=== PATIENT | female | born 1990 | race Hispanic/Latino ===

== ENCOUNTER 2016-09-13 09:37 | Inpatient (IN) | payer OTHER ==
[2016-09-13] MEDS: LACTATED RINGERS 1,000 ML IV NR ×3 (10:27→19:31)
--- NOTE | 2016-09-13 10:38 | Anesthesia Consultation ---
Anesthesia Consult and Med Hx Date of service: 09/13/16 - Airway Anesthetic Teeth Evaluation: Good ROM Head & Neck: Adequate Mental/Hyoid Distance: Adequate Mallampati Class: Class II Intubation Access Assessment: Probably Good - Pre-Operative Health Status ASA Pre-Surgery Classification: ASA2 Proposed Anesthetic Plan: Epidural, Spinal - Pulmonary Hx Asthma: Yes (Childhood asthma) - Cardiovascular System Hx Hypertension: No - Central Nervous System Hx Seizures: No Hx Psychiatric Problems: Yes (Anxiety disorder) - Gastrointestinal Hx Gastroesophageal Reflux Disease: No (hyperemesis) - Endocrine Hx Renal Disease: No Hx Hypothyroidism: No Hx Hyperthyroidism: No - Hematic Hx Anemia: No Hx Sickle Cell Disease: No - Other Systems Hx Alcohol Use: No - Additional Comments Anesthesia Medical History Comments: repeat
--- NOTE | 2016-09-13 10:41 | Anesthesia Day of Surgery ---
Anesthesia Day of Surgery - Day of Surgery Patient Examined: Yes Patient H&P Reviewed: Yes Patient is NPO: Yes
[2016-09-13 10:52] LABS: Basophils % (Auto) 0.5 % (0.0-1.8); Hematocrit 35.2 % (30.3-42.9); Hemoglobin 11.6 gm/dl (10.1-14.3); Mean Corpuscular HGB Conc 33 % (30-34); Mean Corpuscular Hemoglobin 29 pg (28-32); Mean Corpuscular Volume 87 fl (79-97); Platelet Count 141 K/mm3 (140-440); Red Blood Count 4.05 M/mm3 (3.65-5.03); Red Cell Distribution Width 13.2 % (13.2-15.2); White Blood Count 13.6 K/mm3 (4.5-11.0)
[2016-09-13] MEDS ORDERED: BICITRA PO NR (11:00)
[2016-09-13] MEDS ORDERED: SODIUM CHLORIDE FLUSH SYRINGE 10 ML IV PRN (11:00)
[2016-09-13] MEDS ORDERED: ANCEF/STERILE WATER 2 GM/20 ML IV NR (11:00)
[2016-09-13] MEDS ORDERED: REGLAN IV NR (11:00)
[2016-09-13] MEDS ORDERED: PEPCID IV NR (11:00)
[2016-09-13] MEDS ORDERED: PITOCin/NS 20 UNIT/1000ML DRIP 20 UNIT/1,000 ML BAG IV NR (11:00)
[2016-09-13] MEDS ORDERED: MORPHINE ONE (11:29)
[2016-09-13] MEDS ORDERED: DILAUDID IV PRN (11:30)
[2016-09-13] MEDS ORDERED: WATER FOR IRRIG STERILE IR ONE (11:45)
[2016-09-13] MEDS ORDERED: NACL 0.9% IR ONE (11:45)
[2016-09-13] MEDS ORDERED: PHENERGAN PR PRN ×2 (12:00→13:32)
[2016-09-13] MEDS ORDERED: ZOFRAN IV PRN ×2 (12:00→13:32)
[2016-09-13] MEDS ORDERED: NARCAN 0.4 MG/1 ML IV PRN ×2 (12:00→13:32)
[2016-09-13] MEDS ORDERED: NEO SYNEPHRINE/NS Syringe(OR USE) IV ONE (12:05)
[2016-09-13] MEDS ORDERED: ZOFRAN ONE (13:06)
[2016-09-13] MEDS ORDERED: NACL 0.9% 1000 ML 1,000 ML ONE (13:22)
[2016-09-13] MEDS ORDERED: TORADOL ONE (13:28)
--- NOTE | 2016-09-13 13:28 | History and Physical Report ---
History of Present Illness Date of examination: 09/13/16 Date of admission: 09/13/16 09:37 Chief complaint: Repeat c/sec History of present illness: 26 yo at 39+1 weeks here for desired repeat c/sec Past History Past Medical History: no pertinent history Past Surgical History: section Family/Genetic History: none Social history: no significant social history, . denies: smoking, alcohol abuse, prescription drug abuse, IV drug use - Obstetrical History Expected Date of Delivery: 09/19/16 Actual Gestation: 39 Week(s) 1 Day(s) : 2 Para: 1 Hx # Term Pregnancies: 1 Number of Pregnancies: 0 Spontaneous Abortions: 0 Induced : 0 Number of Living Children: 1 Medications and Allergies Allergies Allergy/AdvReac Type Severity Reaction Status Date / Time No Known Allergies Allergy Verified 09/13/16 09:43 Home Medications Medication Instructions Recorded Confirmed Last Taken Type Caplet 1 cap PO DAILY 07/12/16 09/13/16 1 Day Ago History Promethazine [Phenergan TAB] 1 tab PO PRN 09/13/16 1 Day Ago History Active Meds: Active Medications Cefazolin Sodium (Ancef/Sterile Water 2 Gm/20 Ml) 2 gm IV PREOP NR PRN Reason: Protocol Stop: 09/13/16 20:00 Citric Acid/Sodium Citrate (Bicitra) 30 ml PO ONCE NR Stop: 09/13/16 20:00 Last Admin: 09/13/16 10:36 Dose: 30 ml Diphenhydramine HCl (Benadryl) 12.5 mg IV Q2H PRN PRN Reason: Itching Famotidine (Pepcid) 20 mg IV ONCE NR Stop: 09/13/16 20:00 Last Admin: 09/13/16 10:36 Dose: 20 mg Hydromorphone HCl (Dilaudid) 0.5 mg IV Q4H PRN PRN Reason: breakthrough pain > 7/10 Lactated Ringer's (Lactated Ringers) 1,000 mls @ 2,250 mls/hr IV PREOP NR Stop: 09/13/16 21:00 Last Admin: 09/13/16 11:08 Dose: 2,250 mls/hr Oxytocin/Sodium Chloride (Pitocin/Ns 20 Unit/1000ml Drip) 20 unit in 1,000 mls @ 0 mls/hr IV TITR NR PRN Reason: Wide Open Stop: 09/13/16 20:00 Metoclopramide HCl (Reglan) 10 mg IV ONCE NR Stop: 09/13/16 20:00 Last Admin: 09/13/16 10:36 Dose: 10 mg Naloxone HCl (Narcan 0.4 Mg/1 Ml) 0.2 mg IV Q2MIN PRN PRN Reason: Res Rate </= 8 or 02 SAT < 92% Stop: 09/15/16 12:01 Ondansetron HCl (Zofran) 4 mg IV Q8H PRN PRN Reason: Nausea And Vomiting Promethazine HCl (Phenergan) 25 mg PO Q6H PRN PRN Reason: Nausea And Vomiting Promethazine HCl (Phenergan) 25 mg NE Q6H PRN PRN Reason: Nausea And Vomiting Sodium Chloride (Sodium Chloride Flush Syringe 10 Ml) 10 ml IV PRN PRN PRN Reason: flush Review of Systems Constitutional: weight gain Eyes: deferred Ears, nose, mouth and throat: deferred Cardiovascular: no chest pain, no edema Breasts: normal Gastrointestinal: no nausea, no vomiting Genitourinary: deferred Rectal Exam: deferred Integumentary: deferred - Vital Signs Vital signs: Vital Signs Temp Pulse Resp BP Pulse Ox 98.1 F 93 H 18 124/66 98 09/13/16 10:07 09/13/16 10:07 09/13/16 10:07 09/13/16 10:07 09/13/16 10:07 Temp Pulse Resp BP Pulse Ox 98.1 F 72 18 124/66 82 L 09/13/16 10:07 09/13/16 10:10 09/13/16 10:07 09/13/16 10:07 09/13/16 10:10 - Physical Exam Breasts: Positive: normal Cardiovascular: Regular rate, Normal S1, Normal S2 Lungs: Positive: Clear to auscultation, Normal air movement Abdomen: Positive: normal appearance, soft, normal bowel sounds Genitourinary (Female): Positive: normal external genitalia, normal perenium Vulva: both: normal Vagina: Positive: normal moisture Uterus: Positive: normal size, normal contour Adnexa: both: normal Anus/Rectum: Positive: normal perianal skin, heme negative Deep Tendon Reflex Grade: Normal +2 - Obstetrical FHR: auscultation normal, category 1 Uterine Contraction Monitor Mode: External (deferred) Uterine Tone Measurement Phase: Resting Results Result Diagrams: 09/13/16 10:30 Abnormal lab results 09/13/16 Range/Units 10:30 WBC 13.6 H (4.5-11.0) K/mm3 Seg Neutrophils % 76.4 H (40.0-70.0) % Seg Neutrophils # 10.4 H (1.8-7.7) K/mm3 All other labs normal. Assessment and Plan A/P HD#1 schedueld c/sec will draw labs call anesthesia counseled concerning r/b/a/ of procedure. she understands and voiced acceptance proceed with repeat c/sec
[2016-09-13] MEDS ORDERED: LANSINOH TP PRN (13:32)
[2016-09-13] MEDS ORDERED: SENOKOT PO PRN (13:32)
[2016-09-13] MEDS ORDERED: TUCKS PAD TP PRN (13:32)
[2016-09-13] MEDS ORDERED: TYLENOL PO PRN (13:32)
[2016-09-13] MEDS ORDERED: MORPHINE IV PRN ×2 (13:32)
--- NOTE | 2016-09-13 13:44 | Operative Report ---
Operative Report Operative Report: This is a dictation of Catherine Carrasquillo Preop diagnosis 1 previous 1 2 desires repeat Postop diagnoses 5 1-2 same as above Procedure repeat low segment transverse Lysis of adhesions Surgeon Dr. Juares Anesthesia spinal EBL 700 mils IV fluids 1400 mils Urine output 300 mL clear yellow urine Findings Viable girl Apgars 8 and 9 nl tubes and ovaries b/l adnesion peritenum on the left to anterior abdominal wall. weight 7 pounds and 14 ounces Procedure The patient was taken to the operating room where a spinal anesthesia was found to be adequate. She was then prepared and draped in the normal sterile fashion in the dorsal supine position with a leftward tilt. A Pfannenstiel skin incision was then made with the scalpel and carried to the underlying layer of fascia with the Bovie the fascia was incised in the midline and the incision extended laterally with the Eduardo scissors the superior aspect of the fascial incision was then grasped with the Boom clamps elevated and the underlying rectus muscles dissected off bluntly. Attention was then turned to the inferior aspect of this incision which in a similar fashion was grasped tented up with the [place] clamps and the rectus muscles dissected off bluntly. The rectus muscles were then in the midline and the peritoneum identified and tented up and entered sharply with the Metzenbaum scissors the peritoneal incision was then extended superiorly and inferiorly with good visualization of the bladder the bladder blade was then inserted and the vesicouterine peritoneum identified, grasp with the pickups, entered into sharply with the Metzenbaum scissors. This incision was then extended laterally and the bladder flap created digitally the bladder blade was then reinserted and the lower uterine segment incised in a transverse fashion with the scalpel. The uterine incision was then extended laterally with the bandage scissors the bladder blade was removed and infant's head was delivered atraumatically the nose and more month and mouth were suctioned with the DeLee suction trap and the cord clamped and cut and infant was handed off to the waiting pediatricians and staff. Cord blood was sent. The placenta was then removed manually the uterus exteriorized and cleared of all clots and debris the uterus incision was repaired with a 0 Vicryl in a running locked fashion and a second layer of same suture was used to obtain excellent hemostasis was placed for hemostasis which was turned to the right side of the anterior wall of the uterus with an adhesion to the peritoneum was very small the stalk was very narrow and used Bovie to take down that adhesion with excellent hemostasis noted gutters were cleared of all clots and the fascia was reapproximated with a PDS in a running fashion the skin was closed with a Juarez needle the patient tolerated the procedure well sponge lap and needle counts were correct 22 g of Ancef was given prior to incision and the patient was taken recovery room in stable condition this is a end of dictation
[2016-09-13] MEDS ORDERED: ANUCORT-HC PR PRN (13:48)
[2016-09-13] MEDS ORDERED: SODIUM CHLORIDE FLUSH SYRINGE 10 ML IV SCH (14:00)
[2016-09-13] MEDS ORDERED: PITOCin/NS 20 UNIT/1000ML DRIP 20 UNIT/1,000 ML BAG IV SCH (14:00)
[2016-09-13] MEDS: BENADRYL IV PRN ×2 (18:27→21:36)
[2016-09-14 01:19] LABS: Hematocrit 32.9 % (30.3-42.9); Hemoglobin 10.8 gm/dl (10.1-14.3)
[2016-09-14] MEDS: NORCO 5/325 PO PRN ×2 (01:45→08:50)
[2016-09-14] MEDS: MOTRIN PO PRN ×3 (05:43→21:31)
[2016-09-14] MEDS: BENADRYL IV PRN (05:43)
[2016-09-14] MEDS ORDERED: BOOSTRIX IM ONE (06:00)
--- NOTE | 2016-09-14 08:51 | Progress Note ---
Assessment and Plan - Patient Problems (1) Previous delivery, delivered Current Visit: Yes Status: Acute Plan to address problem: Patient doing well Routine postoperative care Subjective - Subjective Date of service: 09/14/16 Interval history: The patient reports doing well. She is tolerating a clear diet without complication. A Lauren has been removed. The patient is ambulating without difficulty. Patient reports: appetite normal, voiding normally, pain well controlled : doing well Objective - Vital Signs Latest vital signs: Vital Signs Temp Pulse Pulse Resp BP BP Pulse Ox 09/14/16 08:28 97.7 F 67 20 121/59 09/14/16 04:55 98.5 F 80 20 99/58 09/14/16 01:00 98 F 72 20 112/57 09/13/16 20:20 98.7 F 73 20 118/51 09/13/16 16:26 18 09/13/16 15:00 97.7 F 69 18 133/66 09/13/16 14:35 98.1 F 62 14 130/65 100 09/13/16 14:26 18 09/13/16 14:15 97.5 F L 58 L 12 126/67 100 09/13/16 14:00 97.8 F 62 12 123/71 100 09/13/16 13:45 58 L 12 117/58 100 09/13/16 13:40 55 L 12 119/47 100 09/13/16 13:35 97.8 F 54 L 16 117/59 100 09/13/16 10:10 72 82 L 09/13/16 10:09 72 82 L 09/13/16 10:08 94 H 99 09/13/16 10:07 98.1 F 93 H 18 124/66 98 Intake and Output 09/13/16 09/14/16 09/14/16 22:59 06:59 14:59 Intake Total 1350 615 120 Output Total 200 1200 600 Balance 1150 -585 -480 Intake: IV 750 375 Lactated Ringers 1,000 ml 500 375 @ 2250 mls/hr IV PREOP NR Rx#:[id number] PITOCin/NS 20 UNIT/1000ML 250 DRIP 20 unit In 1,000 ml @ 250 mls/hr IV TITR MARLON Rx#:[id number] Oral 480 240 120 Intake, Free Water 120 Output: Urine 200 1200 600 Indwelling Catheter 200 Void 0 1200 600 Other: Total, Intake Amount 120 240 120 Total, Output Amount 200 400 600 # Voids Indwelling Catheter 300 Void 3 - Exam Abdomen: Present: normal appearance, soft Uterus: Present: normal, firm Incision: Present: normal - Labs Labs: Abnormal lab results 09/13/16 Range/Units 10:30 WBC 13.6 H (4.5-11.0) K/mm3 Seg Neutrophils % 76.4 H (40.0-70.0) % Seg Neutrophils # 10.4 H (1.8-7.7) K/mm3
[2016-09-14] MEDS: PHENERGAN PO PRN ×2 (09:00→15:51)
[2016-09-14] MEDS: FEOSOL PO SCH (09:51)
[2016-09-14] MEDS: PRENATAL VITAMIN PO SCH (09:52)
--- NOTE | 2016-09-14 12:48 | Progress Note ---
Subjective Date of service: 09/14/16 Interval history: 1st POD after Patient is in the bed, relatively comfortable. Pain is mostly controlled with pain meds. Ambulated well. No residual neurological deficit. No anesthesia complications Objective - Constitutional Vitals: Vital Signs - 12hr 09/14/16 09/14/16 09/14/16 01:00 04:55 08:28 Temperature 98 F 98.5 F 97.7 F Pulse Rate [ 72 80 67 From Monitor] Respiratory 20 20 20 Rate Blood Pressure 112/57 99/58 121/59 [Left Arm] 09/14/16 08:50 Temperature Pulse Rate [ From Monitor] Respiratory 20 Rate Blood Pressure [Left Arm] - Labs CBC & Chem 7: 09/14/16 01:07
[2016-09-14] MEDS: PERCOCET 5/325 PO PRN ×3 (13:15→21:32)
[2016-09-14] MEDS ORDERED: M-M-R II VACCINE SUB-Q ONE (13:34)
[2016-09-14] MEDS: MYLICON PO PRN (21:36)
[2016-09-15] MEDS: MOTRIN PO PRN ×3 (04:08→16:39)
[2016-09-15] MEDS: PERCOCET 5/325 PO PRN ×3 (04:08→16:40)
[2016-09-15] MEDS: MYLICON PO PRN ×2 (04:11→10:31)
[2016-09-15] MEDS: PHENERGAN PO PRN (07:54)
[2016-09-15] MEDS: FEOSOL PO SCH (10:30)
[2016-09-15] MEDS: PRENATAL VITAMIN PO SCH (10:30)
--- NOTE | 2016-09-15 11:59 | Progress Note ---
Assessment and Plan A: POD#2 s/p repeat section, Nausea/Vomiting P: Routine care. Milk of magnesia. Anticipate discharge later today. Subjective - Subjective Date of service: 09/15/16 Principal diagnosis: s/p repeat section Interval history: Pt requesting hospital discharge> Pt reports persistent nausea and vomiting that preceded that is stable. Pt passing flatus and tolerating regular foods. No bowel movement yet. Patient reports: appetite normal, voiding normally, pain well controlled, flatus , ambulating normally, nauseated (per HPI ), no dizzy ambulation, no bowel movement : doing well Objective - Vital Signs Latest vital signs: Vital Signs Temp Pulse Resp BP 09/15/16 08:35 97.8 F 72 20 120/60 09/15/16 00:00 97.8 F 69 20 124/54 09/14/16 17:11 98.2 F 73 20 118/61 09/14/16 13:15 20 Intake and Output 09/14/16 09/15/16 09/15/16 22:59 06:59 14:59 Intake Total 600 120 360 Balance 600 120 360 Intake: Oral 600 120 360 Other: Total, Intake Amount 240 120 120 # Voids Void 1 1 1 - Exam Breasts: Present: deferred Cardiovascular: Present: Regular rate Lungs: Present: Clear to auscultation Abdomen: Present: soft (obese ), abnormal bowel sounds (hypoactive ) Extremities: Present: normal Incision: Present: dressed
--- NOTE | 2016-09-15 12:03 | Discharge Summary ---
Providers - Providers Date of Admission: 09/13/16 09:37 Date of discharge: 09/15/16 Attending physician: JOHN STERLING MD Primary care physician: JOHN STERLING MD Hospitalization Reason for admission: section Delivery: Procedure: section, repeat low transverse Procedure details: Please see operative note. Incision: intact Other procedures: none complications: none Discharge diagnosis: IUP at term delivered [place] baby: female Hospital course: Patient was admitted and underwent repeat section which she tolerated well. Her postoperative course was uncomplicated and she met discharge criteria on postoperative day #2. Condition at discharge: Stable Disposition: DISCHARGED TO HOME OR SELFCARE - Discharge Diagnoses (1) Term of female Status: Acute (2) Morbid obesity Status: Acute Qualifiers: Obesity type: due to excess calories Qualified Code(s): E66.01 - Morbid ( severe) obesity due to excess calories (3) Nausea with vomiting, unspecified Status: Acute Qualifiers: Vomiting type: unspecified Vomiting Intractability: non-intractable Qualified Code(s): R11.2 - Nausea with vomiting, unspecified (4) Previous delivery, delivered Status: Acute Plan - Discharge Medications Prescriptions: Docusate Sodium [Colace] 100 mg PO BID PRN #60 capsule PRN Reason: Constipation Ibuprofen [Motrin] 800 mg PO Q8HR PRN #60 tablet PRN Reason: Pain Oxycodone HCl/Acetaminophen [Percocet 7.5/325 mg] 1 each PO Q6HR PRN #45 tablet PRN Reason: Pain Promethazine [Phenergan TAB] 25 mg PO Q6HR PRN #30 tab PRN Reason: Nausea - Provider Discharge Summary Activity: no sex for 6 weeks, no heavy lifting 4 weeks, no strenuous exercise Diet: routine Instructions: routine Additional instructions: [] Smoking cessation referral if applicable(refer to patient education folder for contact #) [] Refer to [facility] Booklet Call your doctor immediately for: * Fever > 100.5 * Heavy vaginal bleeding ( >1 pad per hour) * Severe persistent headache * Shortness of breath * Reddened, hot, painful area to leg or breast * Drainage or odor from incision. * Keep incision clean and dry at all times and follow doctor's instructions regarding bathing/showering - Follow up plan Follow up: JOHN STERLING MD [Primary Care Provider] - 09/27/16 (Incision check )
[2016-09-15] MEDS: MILK OF MAGNESIA PO SCH ×2 (12:30→16:44)
[2016-09-15 18:23] VITALS: BP 126/68
== END 2016-09-15 17:40 | disposition home or self-care (01) | DRG 765 ==
LOC: APU 09:37 → OB 14:51
PROVIDERS: ADMIT Obstetrics & Gynecology; ATTEND Obstetrics & Gynecology
PROC: 10D00Z1 Extraction of Products of Conception, Low, Open Approach (ICD-10-PCS; principal; 2016-09-13)
DX: O34.211 Maternal care for low transverse scar from previous cesarean delivery (principal); Z68.41 Body mass index [BMI] 40.0-44.9, adult; Z3A.39 39 weeks gestation of pregnancy; O99.214 Obesity complicating childbirth; E66.01 Morbid (severe) obesity due to excess calories; Z37.0 Single live birth
CPT/HCPCS: 36415; 85014; 85018; 85025; 86850; 86900; 86901; 90471; 90715; J0690; J1170; J1200; J1885; J2270; J2370; J2405; J2590; J2765; J7030; J7120; Q0169

== ENCOUNTER 2016-12-15 14:29 | Outpatient (CLI) | payer OTHER | END 2016-12-15 14:30 | disposition home or self-care (01) | LOC: LABHHL 14:29 | PROVIDERS: ATTEND Internal Medicine Gastroenterology | DX: K21.9 Gastro-esophageal reflux disease without esophagitis (principal); K30 Functional dyspepsia | CPT/HCPCS: 88305; 88342 ==